=== PATIENT | male | born 1985 | race Caucasian/White ===

== ENCOUNTER 2018-07-30 11:07 | Emergency (ER) | payer OTHER ==
[~2018-07-30] VITALS: Ht 188 cm; Wt 96.8 kg
[2018-07-30] MEDS ORDERED: SODIUM CHLORIDE 0.9% 1,000 ML IV ONE (11:40)
[2018-07-30] MEDS ORDERED: ONDANSETRON 2MG/ML, 2ML ONE (12:00)
[2018-07-30] MEDS ORDERED: SODIUM CHLORIDE FLUSH 10ML SYR IVF ONE (12:00)
[2018-07-30] MEDS ORDERED: ONDANSETRON 2MG/ML, 2ML IVPush ONE (12:00)
[2018-07-30] MEDS ORDERED: SODIUM CHLORIDE 0.9% 1,000ML IVBOLUS ONE (12:00)
[2018-07-30 12:15] VITALS: BP 118/71
[2018-07-30 12:26] LABS: RAPID INFLUENZA A Negative (Negative); RAPID INFLUENZA B Negative (Negative)
[2018-07-30 12:44] LABS: BASOPHILS # (AUTO) 0.03 x10^3/uL (0-0.1); BASOPHILS % (AUTO) 1 % (0-1); EOSINOPHILS # (AUTO) 0.46 x10^3/uL (0-0.4); EOSINOPHILS % (AUTO) 7 % (1-7); LYMPHOCYTES # (AUTO) 1.42 x10^3/uL (1-3.4); LYMPHOCYTES % (AUTO) 20 % (22-44); MD NO; MEAN CORPUSCULAR HEMOGLOBIN 33.5 pg (27.5-34.5); MEAN CORPUSCULAR HGB CONC 34.7 g/dL (33.2-36.2); MEAN CORPUSCULAR VOLUME 96.6 fL (81-97); MEAN PLATELET VOLUME 7.9 fL (7.4-10.4); MONOCYTES # (AUTO) 0.67 x10^3/uL (0.2-0.8); MONOCYTES % (AUTO) 10 % (2-9); NEUTROPHILS % (AUTO) 63 % (42-75); PLATELET COUNT 320 x10^3/uL (130-400); RED BLOOD COUNT 4.55 x10^6/uL (4.38-5.82); RED CELL DISTRIBUTION WIDTH 13.5 % (9.4-14.8)
[2018-07-30 12:57] LABS: ALANINE AMINOTRANSFERASE 37 U/L (12-78); ALBUMIN 3.7 g/dL (3.4-5.0); ANION GAP 8 mmol/L (5-15); CALCIUM 8.5 mg/dL (8.5-10.1); CHLORIDE 110 mmol/L (98-107); CREATININE 0.77 mg/dL (0.7-1.3)
[2018-07-30 12:59] LABS: ALKALINE PHOSPHATASE 93 U/L (45-117); BILIRUBIN,TOTAL 0.4 mg/dL (0.2-1.0); TOTAL PROTEIN 7.3 g/dL (6.4-8.2)
[2018-07-30 13:30] LABS: MICROSCOPIC NOT IND
[2018-07-30 13:33] LABS: CULTURE INDICATED? NO
== END 2018-07-30 14:43 | disposition home or self-care (01) ==
LOC: ED 14:37
DX: B34.9 Viral infection, unspecified (principal); R11.2 Nausea with vomiting, unspecified; E86.0 Dehydration; I10 Essential (primary) hypertension; F17.200 Nicotine dependence, unspecified, uncomplicated
CPT/HCPCS: 36415; 71046; 80053; 81003; 83605; 85025; 87040; 87400; 96361; 96374; 99285; J2405; J7030